=== PATIENT | female | born 1980 ===

== ENCOUNTER 2025-02-14 08:15 | Outpatient (REF) | payer OTHER, SELFPAY ==
--- OUTSIDE RECORDS SUMMARY | 2025-02-13 09:30 | XMS_ITS | Encounter Summary ---
Author Organization [employer] Address [address] [facility] 7t [place] [address] Care Team Providers Care Motor Vehicles Supervisor Name Role Phone Cora Becerra MD Primary Care Provider [phone] Reason for Visit * Reason Comments Routine Cleaning Dental Exam Encounter Details Date Type Department Care Team (Late st Contact Info) Description 02/13/2025 9:30 AM EST Office Visit [facility] [address] [place] [address] Gilbert Earl Dental calculus (Primary Dx) Social History Tobacco Use Types Packs/Day Years Used Date Smoking Tobacco: Never Passive Smoke Exposure: Never Smokeless Tobacco: Never Depression Answer Date Recorded Patient Health Questionnaire-9 Score 4 02/21/2022 Housing Stability Answer Date Recorded What is your housing situation today? I have ludin lang 12/02/[address] you li ve. Do you have problems with any of the following? None of the above 12/02/2022 Food Insecurity Answer Date Recorded Within the past 12 months, y ou worried that your food would run out before you got money to buy more: Never True 12/02/2022 Within the past 12 months,th e food you bought just didn't last and you didn't have enough money to get more: Never True Transportation Answer Date Recorded In the past 12 months, has l ack of transportation kept you from medical appts, meetings, work or from getting things needed for daily living? No 12/02/2022 Utilities Answer Date Recorded In the past 12 months, has t he electric, gas, oil or water company threatened to shut off services in your home? No 12/02/2022 Depression Answer Date Recorded Patient Health Questionnaire-2 Score 1 02/21/2022 Comments Unknown Sex and Gender Information Value Date Recorded Sex Assigned at Female 12/16/2021 10:17 AM EDT Legal Sex Female 10:17 AM EDT Gender Identity Female 12/16/2021 10:17 AM EDT Sexual Orientation Straight 12/16/2021 10 :17 AM EDT documented as of this encounter Last Filed Vital Signs Vital Sign Reading Time Taken Comments Blood Pressure 120/64 02/13/2025 9:27 AM EST Pulse 65 02/13/2025 9:27 AM EST Temperature - - Respiratory Rate - - Oxygen Saturation - - Inhaled Oxygen Concentration - - Weight - - Height - - Body Mass Index - - documented in this encounter Progress Notes * Gilbert Earl - 02/13/2025 9:30 AM EST Patient ID: Catherine Martell is a 44 y.o. female. Time Out: Timeout Date: 02/13/25, Timeout Time: 927 Location: [facility] Tooth: Maxilla and Mandible Procedure: Prophylaxis Verified the above with patient, travel assistant, and provider. Confirmed via patient's chart, intraorally and by radiographs. Real Estate Agency Licensee: not applicable Medical Hx: Vitals: Blood pressure 120/64, pulse 65. Medications, Med Hx reviewed with patient and updated in chart. Treatment Provided Dental procedures in this visit D1110 - PROPHYLAXIS - ADULT (Completed) Service provider: Gilbert Earl Billtran provider: Maycol Hill DMD D1330 - ORAL HYGIENE INSTRUCTIONS (Completed) Service provider: Gilbert Earl Billing provider: Maycol Hill DMD D9450 - CASE PRESENTATION, DETAILED AND EXTENSIVE TREATMENT PLANNING (Completed) Service provider: Gilbert Earl Billing provider: Maycol Hill DMD Instruments Used: Ultrasonic Scalers and Prophy angle Fluoride: N/A Oral Cancer Screening: No lesions Head/Neck Exam: No Lesions Calculus: Light and Generalized Plaque: Light and Generalized Stain: Light and Localized Bleeding: Light and Localized Gingiva: Healthy [place]: Fair Perio Chart: Not Completed Oral hygiene instructions provided to patient including brushing technique and flossing. Recommendations: [place] two times daily, modified carmona technique, Floss daily Recall Frequency: 6 mo NV: 6mr Hygienist: Gilbert Earl RDH documented in this encounter Plan of Treatment Upcoming Encounters Date Type Department Care Team (Late st Contact Info) Description 03/21/2025 9:15 AM EST Office Visit [facility] [address] [place] [address] Cora Becerra MD [address] [place] [address] 08/21/2025 8:00 AM EDT Office Visit [facility] [address] [place] [address] Gilbert Earl Scheduled Orders Name Type Priority Associated Diagnoses Orde r Schedule Full Full PROPHYLAXIS - ADULT Dental Routine [address] arting 02/13/2025 documented as of this encounter Procedures Procedure Name Priority Date/Time Associated Diagnosis Comments PROPHYLAXIS - ADULT Routine 02/13/2025 9 :30 AM EST ORAL HYGIENE INSTRUCTIONS Routine 2024 9:30 AM EST CASE PRESENTATION, DETAILED AND EXTENSIVE TREATMENT PLANNING Routine 02/13/2025 9:30 AM EST documented in this encounter Visit Diagnoses Diagnosis Dental calculus- Primary Accretions on teeth documented in this encounter Additional Health Concerns Assessment Noted Time PHQ-9 Depression Total Score: 4 02/21/19 23 10:21 AM EST documented as of this encounter Care Teams Motor Vehicles Supervisor Relationship Specialty Start Date End Date Cora Becerra MD [address] [place] [address] PCP - General Family Medicine 02/16/18 documented as of this encounter
--- NOTE | ~2025-02-14 | MM_ITS ---
EXAMINATION: MM DIAGNOSTIC DIGITAL BREAST TOMOSYNTHESIS, RIGHT Limited right breast ultrasound. CLINICAL INFORMATION: Right breast retroareolar pain and palpable lump. COMPARISON: Mammography: Comparison is made with relevant prior exams. TECHNIQUE: Digital breast mammography with tomosynthesis is performed in both the craniocaudal and mediolateral oblique views along with computer-aided detection (CAD). FINDINGS: The breasts are heterogeneously dense, which may obscure small masses. Triangular marker and BB marker in the upper outer breast anterior depth at site of patient's pain and palpable lump with underlying circumscribed oval masses. No suspicious calcifications or other abnormal findings. Targeted color Doppler ultrasound demonstrates a minimally complicated cyst at 12:00 3 cm from the nipple measuring approximately 43 x 34 x 39 mm with mobile internal debris. There is a minimally complicated cyst at 12:00 6 cm from nipple measuring 8 x 8 x 8 mm. Results are provided to the patient at time of visit by the technologist. MM/MM tomosynthesis diagnostic BI IMPRESSION: 1. Minimally computed cyst on ultrasound. These are benign however largest one at 12:00 3 7 m from the nipple could be causing pain and cyst aspiration is recommended and/or could be performed to relieve pain. Patient will see a breast surgeon for clinical evaluation and recommendation for aspiration. 2. Recommend six-month follow-up mammography and ultrasound to exclude underlying abnormal finding as these cysts are large and new and underlying tissue cannot be thoroughly evaluated at this time. ASSESSMENT: BI-RADS Category 3: Probably benign RECOMMENDATION: 6 Month F/U This patient's information was entered into a reminder system with a target due date for their next mammogram. Electronically signed by: Geetha Pinedo DO 02/14/2025 11:45 AM KRISTI
--- OUTSIDE RECORDS SUMMARY | 2025-02-14 09:48 | XMS_ITS | Encounter Summary ---
Author Organization [employer] Address [address] [place] [address] Care Team Providers Care Business Analytics Specialist Name Role Phone Cora Becerra MD Primary Care Provider [phone] Encounter Details Date Type Department Care Team (Latest Contact Info) Description 08/15/2021 Abstract [facility] CONVERSIONS Dental, Provider, DDS Social History Tobacco Use Types Packs/Day Years Used Date Smoking Tobacco: Never Assessed Comments Unknown Sex and Gender Information Value Date Recorded Sex Assigned at Female 12/16/2021 10:17 AM EDT Legal Sex Female 10:17 AM EDT Gender Identity Female 12/16/2021 10:17 AM EDT Sexual Orientation Straight 12/16/2021 10 :17 AM EDT documented as of this encounter Plan of Treatment Upcoming Encounters Date Type Department Care Team ( st Contact Info) Description 03/21/2025 9:15 AM EST Office Visit [facility] [address] [place] [address] Cora Becerra MD [address] [place] [address] 08/21/2025 8:00 AM EDT Office Visit [facility] ADULT D[facility] [address] [place] [address] Gilbert Earl documented as of this encounter Visit Diagnoses Not on filedocumented in this encounter Care Teams Business Analytics Specialist Relationship Specialty Start Date End Date Cora Becerra MD [address] [place] [address] PCP - General Family Medicine 02/16/18 documented as of this encounter
--- OUTSIDE RECORDS SUMMARY | 2025-02-14 09:48 | XMS_ITS | Encounter Summary ---
Author Organization [employer] Address [address] [place] [address] Care Team Providers Care Clay Pigeon Loader Name Role Phone Cora Becerra MD Primary Care Provider [phone] Encounter Details Date Type Department Care Team (Latest Contact Info) Description 04/19/2020 Abstract [facility] CONVERSIONS Dental, Provider, DDS Social History Tobacco [...] Description 03/21/2025 9:15 AM EST Office Visit [facility] [address] [place] [address] Cora Becerra MD [address] [place] [address] 08/21/2025 8:00 AM EDT Office Visit [facility] ADULT [facility] [address] [place] [address] Gilbert Earl documented as of this encounter Visit Diagnoses Not on filedocumented in this encounter Care Teams Clay Pigeon Loader Relationship Specialty Start Date End Date Cora Becerra MD [address] [place] [address] PCP - General Family Medicine 02/16/18 documented as of this encounter
--- OUTSIDE RECORDS SUMMARY | 2025-02-14 09:48 | XMS_ITS | Encounter Summary ---
Author Organization [employer] Address [address] [facility] 7 [place] [address] Care Team Providers Care Independent Beauty Consultant Name Role Phone Cora Becerra MD Primary Care Provider Reason for Visit * Reason Comments Med Refill Encounter Details Date Type Department Care Team (Late st Contact Info) Description 02/11/2025 Refill [facility] [address] [place] [address] Cora Becerra MD [address] [place], [place] [id number] Social History Tobacco Use Types Packs/Day Years [...] Description 03/21/2025 9:15 AM EST Office Visit [facility] [address] [place] [address] Cora Becerra MD [address] [place] [address] 08/21/2025 8:00 AM EDT Office Visit [facility] [address] [place] [address] Gilbert Earl documented as of this encounter Visit Diagnoses Not on filedocumented in this encounter Additional Health Concerns Assessment Noted Time PHQ-9 Depression Total Score: 4 02/21/19 23 10:21 AM EST documented as of this encounter Care Teams Independent Beauty Consultant Relationship Specialty Start Date End Date Cora Becerra MD [address] [place] [address] PCP - General Family Medicine 02/16/18 documented as of this encounter
--- OUTSIDE RECORDS SUMMARY | 2025-02-14 09:48 | XMS_ITS | Encounter Summary ---
Author Organization [employer] Address [address] [facility] 7t [place] [address] Care Team Providers Care Market Research Intern Name Role Phone Cora Becerra MD Primary Care Provider [phone] Reason for Visit * Reason Onset Date Comments question 12/28/2023 Encounter Details Date Type Department Care Team ([facility] st Contact Info) Description 12/28/2023 Telephone [facility] ADULT DENT[facility] [address] [place] [address] Yadi Hu question Social History Tobacco Use Types Packs/Day Years [...] AM EDT documented as of this encounter Miscellaneous Notes * Telephone Encounter - Tita Lucioto - 12/28/2023 8:37 AM EST Pt called asking if its normal for cold water to cause pain on the tooth DR HU extracted recently. Please call pt back to answer any of her questions CS documented in this encounter Plan of Treatment Upcoming Encounters Date Type Department Care Team (Late st Contact Info) Description 03/21/2025 9:15 AM EST Office Visit [facility]ED[facility] [address] [place] [address] Cora Becerra MD [address] [place] [address] 08/21/2025 8:00 AM EDT Office Visit [facility] [address] [place] [address] Gilbert Earl documented as of this encounter Visit Diagnoses Not on filedocumented in this encounter Additional Health Concerns Assessment Noted Time PHQ-9 Depression Total Score: 4 02/21/19 23 10:21 AM EST documented as of this encounter Care Teams Market Research Intern Relationship Specialty Start Date End Date Cora Becerra MD [address] [place] [address] PCP - General Family Medicine 02/16/18 documented as of this encounter
--- OUTSIDE RECORDS SUMMARY | 2025-02-14 09:48 | XMS_ITS | Encounter Summary ---
Author Organization [employer] Address [address] [facility] 7t [place] [address] Care Team Providers Care Architectural Superintendent Name Role Phone Cora Becerra MD Primary Care Provider [phone] Reason for Visit * Reason Onset Date Comments insurance portal 12/02/2023 Encounter Details Date Type Department Care Team ([facility] st Contact Info) Description 12/02/2023 Telephone [facility] ADULT DENT[facility] [address] [place] [address] Yadi Hu insurance portal Social History Tobacco Use Types Packs/Day Years [...] encounter Miscellaneous Notes * Telephone Encounter - Inge Jamil - 12/02/2023 8:20 AM EDT Patient coming in for emergency visit on 12/01 at 11:30. Patient [place] DD of [place] and Partial Health Safety Net. Unable to run insurance through portal to post although it processed through [facility]. Contacted [facility] and office is having same situation. Have posted Partial Health Safety Net to chart. [facility] will follow up DR documented in this encounter Plan of Treatment Upcoming Encounters Date Type Department Care Team (Late st Contact Info) Description 03/21/2025 9:15 AM EST Office Visit [facility] [address] [place] [address] Cora Becerra MD [address] [place] [address] 08/21/2025 8:00 AM EDT Office Visit [facility]ULT [facility] [address] [place] [address] Gilbert Earl documented as of this encounter Visit Diagnoses Not on filedocumented in this encounter Additional Health Concerns Assessment Noted Time PHQ-9 Depression Total Score: 4 02/21/19 23 10:21 AM EST documented as of this encounter Care Teams Architectural Superintendent Relationship Specialty Start Date End Date Cora Becerra MD [address] [place] [address] PCP - General Family Medicine 02/16/18 documented as of this encounter
--- OUTSIDE RECORDS SUMMARY | 2025-02-14 09:48 | XMS_ITS | Encounter Summary ---
Author Organization [employer] Address [address] [place] [address] 7 [place] [address] Care Team Providers Care U.[place]. Representative Name Role Phone Cora Becerra MD Primary Care Provider [phone] Encounter Details Date Type Department Care Team (Latest Contact Info) Description 03/31/2018 Abstract [facility] CONVERSIONS Dental, Provider, DDS Social History Tobacco [...] Description 03/21/2025 9:15 AM EST Office Visit [facility] [address] [place] [address] Cora Becerra MD [address] [place] [address] 08/21/2025 8:00 AM EDT Office Visit [facility] ADULT DENTAL [address] [place] [address] Gilbert Earl documented as of this encounter Visit Diagnoses Not on filedocumented in this encounter Care Teams U.S. Representative Relationship Specialty Start Date End Date Cora Becerra MD [address] [place] [address] PCP - General Family Medicine 02/16/18 documented as of this encounter
--- OUTSIDE RECORDS SUMMARY | 2025-02-14 09:50 | XMS_ITS | Encounter Summary ---
Author Organization [employer] Address [address] [facility] 7 [place] [address] Care Team Providers Care Sensor Technician Name Role Phone Cora Becerra MD Primary Care Provider [phone] Reason for Visit * Reason Comments Med Refill Encounter Details Date Type Department Care Team (Late st Contact Info) Description 02/10/2023 Refill [facility] MEDICINE [address] [place] [address] Cora Becerra MD [address] [place], [place] [phone] Social History Tobacco Use Types Packs/Day Years [...] 9:15 AM EST Office Visit [facility] [address] [place] [address] Cora Becerra MD [address] [place] [address] 08/21/2025 8:00 AM EDT Office Visit [facility] [address] [place] [address] Gilbert Earl documented as of this encounter Visit Diagnoses Not on filedocumented in this encounter Additional Health Concerns Assessment Noted Time PHQ-9 Depression Total Score: 4 02/21/19 23 10:21 AM EST documented as of this encounter Care Teams Sensor Technician Relationship Specialty Start Date End Date Cora Becerra MD [address] [place] [address] PCP - General Family Medicine 02/16/18 documented as of this encounter
--- OUTSIDE RECORDS SUMMARY | 2025-02-14 09:50 | XMS_ITS | Encounter Summary ---
Author Organization [employer] Address [address] [place] [address] [address] [place] [address] Care Team Providers Care Principal Data Architect Name Role Phone Cora Becerra MD Primary Care Provider [phone] Reason for Visit * Reason Onset Date Comments Referral 08/06/2022 Encounter Details Date Type Department Care Team ([facility] st Contact Info) Description 08/06/2022 Telephone [facility] [address] [place], [place] [address] Cora Becerra MD [address] [place] [address] Referral Social History Tobacco Use Types Packs/Day Years Used Date Smoking Tobacco: Never Passive Smoke Exposure: Never Smokeless Tobacco: Never Depression Answer Date Recorded Patient Health Questionnaire-9 Score 4 02/21/2022 Depression Answer Date Recorded Patient Health Questionnaire-2 Score 1 02/21/2022 Comments Unknown Sex and Gender Information Value Date Recorded Sex Assigned at Female 12/16/2021 10:17 AM EDT Legal Sex Female 10:17 AM EDT Gender Identity Female 12/16/2021 10:17 AM EDT Sexual Orientation Straight 12/16/2021 10 :17 AM EDT COVID-19 Exposure Response Date Recorded In the last 10 days, have yo u been in contact with someone who was confirmed or suspected to have Coronavirus/COVID-19? No / Unsure 07/29/2022 9:22 AM EDT documented as of this encounter Miscellaneous Notes * Telephone Encounter - Bindu Colon - 08/28/2022 11:09 AM EDT [facility]erral [place] [facility] [place]. Appointment pending. * Telephone Encounter - Tejas Milton - 08/26/2022 8:33 AM EDT Tc from pt requesting to speak to a nurse in regards to referral, Please see notes, Please contact at [phone] * Telephone Encounter - Mounika Alanis - 08/06/2022 9:41 AM EDT Tc from patient requesting status on rheumatology referral from 07/29/22. documented in this encounter Plan of Treatment Upcoming Encounters Date Type Department Care Team (Late st Contact Info) Description 03/21/2025 9:15 AM EST Office Visit [facility] MED & PEDS [address] [place] [address] Cora Becerra MD [address] [place] [address] 08/21/2025 8:00 AM EDT Office Visit [facility] ADULT DENTAL [address] [place] [address] Gilbert Earl documented as of this encounter Visit Diagnoses Not on filedocumented in this encounter Additional Health Concerns Assessment Noted Time PHQ-9 Depression Total Score: 4 02/21/19 23 10:21 AM EST documented as of this encounter Care Teams Principal Data Architect Relationship Specialty Start Date End Date Cora Becerra MD [address] [place] [address] PCP - General Family Medicine 02/16/18 documented as of this encounter
--- OUTSIDE RECORDS SUMMARY | 2025-02-14 09:50 | XMS_ITS | Encounter Summary ---
Author Organization [employer] Address [address] [facility] 7t [place] [address] Care Team Providers Care Spot Cleaner Name Role Phone Cora Becerra MD Primary Care Provider [phone] Encounter Details Date Type Department Care Team (Late st Contact Info) Description 02/25/2023 Abstract [facility] ADULT DENTAL [address] [place], [place] [phone] Renetta, Julia [address] [place] [address] Social History Tobacco Use Types Packs/Day Years [...] Description 03/21/2025 9:15 AM EST Office Visit [facility] [address] [place] [address] Cora Becerra MD [address] [place] [address] 08/21/2025 8:00 AM EDT Office Visit [facility] AD[facility] [address] [place] [address] Gilbert Earl documented as of this encounter Visit Diagnoses Not on filedocumented in this encounter Additional Health Concerns Assessment Noted Time PHQ-9 Depression Total Score: 4 02/21/19 23 10:21 AM EST documented as of this encounter Care Teams Spot Cleaner Relationship Specialty Start Date End Date Cora Becerra MD [address] [place] [address] PCP - General Family Medicine 02/16/18 documented as of this encounter
--- OUTSIDE RECORDS SUMMARY | 2025-02-14 09:50 | XMS_ITS | Encounter Summary ---
Author Organization [employer] Address [address] [facility] 7 [place] [address] Care Team Providers Care Dried Yeast Supervisor Name Role Phone Cora Becerra MD Primary Care Provider [phone] Reason for Visit * Reason Onset Date Comments Appointment Request 01/21/2024 Encounter Details Date Type Department Care Team ([facility] st Contact Info) Description 01/21/2024 Telephone [facility] MEDICINE [address] [place] [address] Cora Becerra MD [address] [place] [address] Appointment Request Social History Tobacco Use Types Packs/Day Years [...] encounter Miscellaneous Notes * Telephone Encounter - Kimberly Hernandez RN - 01/21/2024 1:23 PM EST Call returned to Catherine Martell to triage below. Reports having widespread skin tags on neck that are itchy and bothersome. Per pt having some on moles on face that are now becoming itchy and have increased in size. Pt is seen by [facility] for Hair loss and skin tags. Last appt on 05/12/23 no followup scheduled and no recall on file. Pt offered sick on site today with Dr. Earl but patinet not avaialble. Pt wants appt week of 02/07. No OV at this time only sick o site and not able to book those until 24--48 hours in advance. Pt to return call on 02/04 for sick on site PRN. Will forward request for DERM referral for moles on face and skin tags for provider to review and advise team if agreeable to referral. Reviewed home care advise, ER precautions and reasons to call back. Protocol Used: Skin Lesion - Moles or Growths (Adult) Protocol-Based Disposition: See in Office or Video Visit within 2 Weeks Override (Final) Disposition: Discuss with PCP and Callback by Nurse Today Override Reason: Other Override Notes: Requesting referral Video visit offer not recorded Positive Triage Question: * Skin growth or mole and it is larger than a pencil eraser or increasing in size * All higher-acuity triage questions were negative Care Advice Discussed: * Reasons To Call Back - Fever or pain occurs - You become worse * Telephone Encounter - Albina Sarah RN - 01/21/2024 1:20 PM EST called pt to triage, spoke to pt. pt states saw Dermatology at the clinic back in April regarding skin tags. pt states recently has a lot more skin tags on her neck area and requesting Dermatology appt. pt denies redness or any infected looking areas. advised that will task to the team [place] to followup and schedule Dermatology follow up as available. advised home care: avoid friction on the areas affected, avoid use of scented products or cologne, and call back as needed. pt understands and agrees with plan. Protocol Used: No Protocol Available (Adult) Protocol-Based Disposition: Home Care Positive Triage Question: * Patient's symptoms are safe to treat at home per nursing judgment * All higher-acuity triage questions were negative Care Advice Discussed: * Reasons To Call Back - New symptoms develop - You become worse * Telephone Encounter - Tejas Milton - 01/21/2024 1:13 PM EST Tc from pt returning call. Please contact at [phone] * Telephone Encounter - Jw Barnes - 01/21/2024 11:45 AM EST Tc from pt requesting a apt for dermatology. Pt chose not to say anymore information but did state that she had concerns. Contact pt at [phone] documented in this encounter Plan of Treatment Upcoming Encounters Date Type Department Care Team (Late st Contact Info) Description 03/21/2025 9:15 AM EST Office Visit [facility] [address] [place] [address] Cora Becerra MD [address] [place] [address] 08/21/2025 8:00 AM EDT Office Visit [facility] ADULT DENT[facility] [address] [place] [address] Gilbert Earl documented as of this encounter Visit Diagnoses Not on filedocumented in this encounter Additional Health Concerns Assessment Noted Time PHQ-9 Depression Total Score: 4 02/21/19 23 10:21 AM EST documented as of this encounter Care Teams Dried Yeast Supervisor Relationship Specialty Start Date End Date Cora Becerra MD [address] [place] [address] PCP - General Family Medicine 02/16/18 documented as of this encounter
--- OUTSIDE RECORDS SUMMARY | 2025-02-14 09:50 | XMS_ITS | Encounter Summary ---
Author Organization [employer] Address [address] [place] [address] Care Team Providers Care Stapler Hand Name Role Phone Cora Becerra MD Primary Care Provider [phone] Reason for Visit * Reason Comments Med Refill Encounter Details Date Type Department Care Team ([facility] st Contact Info) Description 03/29/2024 Refill [facility] [address] [place], [place] [phone] Lorri Earl MD [address] [place] [address] Hair loss disorder Social History Tobacco Use Types Packs/Day Years [...] Description 03/21/2025 9:15 AM EST Office Visit [facility] [address] [place] [address] Cora Becerra MD [address] [place] [address] 08/21/2025 8:00 AM EDT Office Visit [facility] [address] [place] [address] Gilbert Earl documented as of this encounter Visit Diagnoses Diagnosis Hair loss disorder Unspecified alopecia documented in this encounter Additional Health Concerns Assessment Noted Time PHQ-9 Depression Total Score: 4 02/21/19 23 10:21 AM EST documented as of this encounter Care Teams Stapler Hand Relationship Specialty Start Date End Date Cora Becerra MD [address] [place] [address] PCP - General Family Medicine 02/16/18 documented as of this encounter
--- OUTSIDE RECORDS SUMMARY | 2025-02-14 09:50 | XMS_ITS | Clinical Summary ---
Author Organization [employer] Address [address] [facility] [address] [place] [address] Care Team Providers Care Android Framework Developer Name Role Phone Cora Becerra MD Primary Care Provider [phone] Allergies No known active allergies Medications biotin 1 MG capsule Active ketoconazole (NIZOral) 2 % shampooIndicat ions:Dermatiti s, seborrheic APPLY TOPICALLY 2 TIMES A WEEK 120 mL 2 12/31/19 23 Active losartan (Cozaar) 50 MG tablet TAKE 1 TABLET BY MOUTH EVERY DAY IN THE MORNING 90 tablet 2 02/12/20 23 Active amoxicillin-cl avulanate (Augmentin) 875-125 MG tablet TAKE 1 TABLET BY MOUTH EVERY 12 HOURS FOR 7 DAYS. TAKE WITH FOOD OR MILK. 12/12/19 24 Active minoxidil (Loniten) 2.5 MG tabletIndicati ons:Hair loss disorder Take 1 tablet (2.5 mg) by mouth Once per day. 90 tablet 3 03/29/19 25 026 Active losartan (Cozaar) 50 MG tablet TAKE 1 TABLET BY MOUTH EVERY DAY IN THE MORNING 90 tablet 02/14/20 25 Active losartan (Cozaar) 50 MG tablet Take 1 tablet (50 mg) by mouth in the morning. 90 tablet 11/21/19 25 025 Discontinued(Re order (will not trigger notification to Pharmacy)) Active Problems Problem Noted Date Diagnosed Date Cervical intraepithelial neoplasia grade 2 12/17 History of abnormal cervical Papanicolaou smear 12/18/2023 Overview (12/18/2023): LEEP 2013 JOHNNY II Benign essential hypertension 07/03/2015 Encounters Date Type Department Care Team Description 02/14/2025 Telephone [facility] [address] [place] [address] Cora Becerra MD new referral 02/13/2025 9:30 AM EST Office Visit [facility] [address] [place] [address] Gilbert Earl Dental calculus (Primary Dx) 02/11/2025 Refill [facility] [address] [place] [address] Cora Becerra MD 02/02/2025 Telephone [facility] [address] [place] [address] Nelson Daigle MD Lab Orders 01/31/2025 9:00 AM EST Office Visit [facility] [address] [place] [address] Nelson Daigle MD Mass of upper inner quadrant of right breast (Primary Dx) 01/31/2025 Telephone [facility] [address] [place] [address] Cora Becerra MD Referral 01/31/2025 Travel 01/31/2025 Telephone [facility] [address] [place] [address] Cora Becerra MD Nurse Triage 11/18/2024 Refill [facility] [address] [place] [address] Cora Becerra MD from Last 3 Months Immunizations Immunization Administration Dates Next Due Influenza, IIV3, injectable 04/23/2009, 6 Moderna Covid-19 Vaccine 12+ 07/23/2020,06/26/19 21 TD (adult), 2 Lf tetanus tox oid, preservative free, adsorbed 11/12/2006 Tdap 01/05/2018 Social History Tobacco Use Types Packs/Day Years Used Date Smoking Tobacco: Never Passive Smoke Exposure: Never Smokeless Tobacco: Never Tobacco Cessation:Counseling Given: Not Answered Depression Answer Date Recorded Patient Health Questionnaire-9 [...] Orientation Straight 12/16/2021 10 :17 AM EDT Last Filed Vital Signs Vital Sign Reading Time Taken Comments Blood Pressure 120/64 02/13/2025 9:27 AM EST Pulse 65 02/13/2025 9:27 AM EST Temperature 37.1 C (98.7 F) 01/31/2025 9:18 AM EST Respiratory Rate 20 01/31/2025 9:18 AM EST Oxygen Saturation 99% 05/12/2023 9:57 AM EDT Inhaled Oxygen Concentration - - Weight 69.5 kg (153 lb 3.2 oz) 01/31/2025 9:18 A M EST Height 157.5 cm (5' 2 ) 01/31/2025 9:18 AM EST Body Mass Index 28.02 01/31/2025 9:18 AM EST Plan of Treatment Upcoming Encounters Date Type Department Care Team ([facility] st Contact Info) Description 03/21/2025 9:15 AM EST Office Visit [facility] [address] [place] [address] Cora Becerra MD [address] [place] [address] 08/21/2025 8:00 AM EDT Office Visit [facility] [address] [place] [address] Gilbert Earl Health Maintenance Due Date Last Done Comments HIV Screening 1981 Disability Screening 1981 Alcohol/Substance Use Screening 1993 Family Planning (PISQ) 1996 HPV Vaccines (1 - 3-dose series) 1996 Hepatitis C Screening 07/12/1999 Hepatitis B Vaccines (1 of 3 - 19+ 3-dose series) 2000 Pap Smear 2002 Cervical Cancer Screening 07/12/2011 HPV/Cotest 07/12/2011 Mammogram 2021 Depression Screening 02/21/2023 02/21/2022, 02/21/19 23 SDOH Screening 02/21/2023 02/21/2022 COVID-19 Vaccine ( season) 2024 07/23/2020, 06/25/2020 Influenza Vaccine (#1) 2024 04/23/2009, 2005 Dental Oral Exam 12/04/2024 06/03/2024, 02/10/2023 Dental X-Ray: Bitewings 06/04/2025 06/04/19 25, 12/02/2023, 02/10/2023 Dental Prophylaxis 08/15/2025 02/13/2025, 0 06/03/2024, 09/17/2023, Additional history exists Dental X-Ray: Full Mouth 02/11/2026 02/10/2023 Tobacco Screening 02/13/2026 02/13/2025 Lipid Panel 02/24/2027 02/24/2022, 07/03/2020 DTaP/Tdap/Td Vaccines (2 - Td or Tdap) 01/06/2028 01/05/2018, 11/12/2006 Zoster Vaccines (1 of 2) 07/12/2031 RSV Patients and Patients Aged 60 years or older (1 - 1-dose 75+ series) 2056 HIB Vaccines Aged Out No longer eligi ble based on patient's age to complete this topic Hepatitis A Vaccines Aged Out No long er eligible based on patient's age to complete this topic IPV Vaccines Aged Out No longer eligi ble based on patient's age to complete this topic Meningococcal B Vaccine Aged Out No l onger eligible based on patient's age to complete this topic Meningococcal Vaccine Aged Out No alexa jus eligible based on patient's age to complete this topic Pneumococcal Vaccine: Pediatrics (0 to 5 Years) and At-Risk Patients (6 to 49) Years Aged Out No longer eligible based on patient's age to complete this topic RSV under 20 months Aged Out No longe r eligible based on patient's age to complete this topic Rotavirus Vaccines Aged Out No longer eligible based on patient's age to complete this topic Procedures Procedure Name Priority Date/Time Associated Diagnosis Comments ORAL HYGIENE INSTRUCTIONS Routine 02/13/2025 9:30 AM EST CASE PRESENTATION, DETAILED AND EXTENSIVE TREATMENT PLANNING Routine 02/13/2025 9:30 AM EST PROPHYLAXIS - ADULT Routine 02/13/2025 9 :30 AM EST BITEWINGS - 4 RADIOGRAPHIC IMAGES Routine 06/03/2024 2:00 PM EDT PERIODIC ORAL EVALUATION - ESTABLISHED PATIENT Routine 06/03/2024 2:00 PM EDT INTRAORAL - COMPLETE SERIES OF RADIOGRAPHIC IMAGES Routine 02/10/2023 10:00 AM EST LIPID PANEL, STANDARD Routine 02/24/2022 8:08 AM EST Benign essential hypertension from Last 3 Months or Most Recently Relevant to Health Maintenance Results * (ABNORMAL) Lipid Panel, Standard (02/24/2022 8:08 AM EST) Cholesterol, Total 199 <200 mg/dL [facility] HDL Cholesterol 50 > OR = 50 mg/dL [facility] Triglycerides 112 <150 mg/dL [facility] LDL Cholesterol 127(H) mg/dL (calc) [facility] [employer] [facility] Comment: Reference range: <100 Desirable range <100 mg/dL for primary prevention; <70 mg/dL for patients with CHD or diabetic patients with > or = 2 CHD risk factors. LDL-C is now calculated using the Watson-Cardona calculation, which is a validated novel method providing better accuracy than the Friedewald equation in the estimation of LDL-C. Watson SS et al. KOLBY. 2013;310(19): 5027-4126 (http://education.[employer].Databraid/faq/WQR357) Chol/HDLC Ratio 4.0 <5.0 (calc) [facility] Non-HDL Cholesterol 149(H) <130 mg/dL (calc) [facility] Comment: For patients with diabetes plus 1 major ASCVD risk factor, treating to a non-HDL-C goal of <100 mg/dL (LDL-C of <70 mg/dL) is considered a therapeutic option. Blood Venous blood specimen / Unknown 02/24/2022 8:08 AM EST 02/24/2022 8:08 AM EST Narrative [facility] - 02/25/2022 10:21 AM EST FASTING:YES FASTING: YES us Cora Becerra MD LAB BLOOD ORDERABLES Final Re sult [facility] [address], [place] [address] [employer] [address] [facility], ([address]) [place] [address] from Last 3 Months or Most Recently Relevant to Health Maintenance [place] [address] [address] [place] [address] [facility] PARTIAL (MEDICAID) Care Teams Android Framework Developer Relationship Specialty Start Date End Date Cora Becerra MD [address] [place] [address] PCP - General Family Medicine 02/16/18
--- OUTSIDE RECORDS SUMMARY | 2025-02-14 09:50 | XMS_ITS | Clinical Summary ---
Author Organization [facility] Address [address] [place] [address] Care Team Providers Care Rehabilitation Services Director Name Role Phone Unavailable Primary Care Provider Unavailabl e Social History Tobacco Use Types Packs/Day Years Used Date Smoking Tobacco: Never Assessed Comments Unknown Sex and Gender Information Value Date Recorded Sex Assigned at Not on file Legal Sex Female 4:33 AM EST Gender Identity Not on file Sexual Orientation Not on file Plan of Treatment Health Maintenance Due Date Last Done Comments Breast Cancer Screening 1981 DTaP,Tdap,and Td Vaccines (1 - Tdap) 2000 Hepatitis B Vaccines (1 of 3 - 19+ 3-dose series) 2000 Cervical Cancer Screening: P ap Smear 2002 HPV Vaccines (1 - 3-dose SCD M series) 2008 Depression Screening 02/17/2024 COVID-19 Vaccine (1 - 2024-2 6 season) 2024 Influenza Vaccine (#1) 2024 RSV Immunization Adult Patie nts (1 - 1-dose 75+ series) 2056 HIB Vaccines Aged Out No longer eligi ble based on patient's age to complete this topic Hepatitis A Vaccines Aged Out No long er eligible based on patient's age to complete this topic IPV Vaccines Aged Out No longer eligi ble based on patient's age to complete this topic MMR Vaccines Aged Out No longer eligi ble based on patient's age to complete this topic Meningococcal ACWY Vaccine Aged Out N o longer eligible based on patient's age to complete this topic Meningococcal B Vaccine Aged Out No l onger eligible based on patient's age to complete this topic Pneumococcal Vaccine: Pediat rics (0 to 5 Years) and At-Risk Patients (6 to 49 Years) Aged Out No longer eligible b ased on patient's age to complete this topic RSV Immunization Patients Un judie 20 months Aged Out No longer eligible b ased on patient's age to complete this topic Varicella Vaccines Aged Out No longer eligible based on patient's age to complete this topic
== END 2025-02-14 08:16 | disposition home or self-care (01) ==
LOC: HO.MAMMO 08:15
PROVIDERS: PCP Pediatrics; Visit Provider Internal Medicine
DX: N64.4 Mastodynia (principal); N63.12 Unspecified lump in the right breast, upper inner quadrant
CPT/HCPCS: 76642; 77062; 77066

== ENCOUNTER → 2025-02-14 08:30 | Outpatient (BNV) | payer OTHER, SELFPAY | PROVIDERS: PCP Pediatrics; Visit Provider Internal Medicine | DX: N60.01 Solitary cyst of right breast (principal); N64.4 Mastodynia | CPT/HCPCS: 76642; 77062; 77066 ==